=== PATIENT | male | born 1965 | race Asian ===

== ENCOUNTER 2023-01-23 10:49 | Inpatient (IN) | payer OTHER ==
[2023-01-23 11:57] LABS: HEMATOCRIT 46.1 % (35.4-49); HEMOGLOBIN 15.2 G/dL (11.7-16.9); MCH 29.9 pg (25.7-33.7); MEAN CELL VOLUME 90.5 fl (80-96); MEAN PLT VOLUME 8.7 fl (7.5-11.1); PLATELET COUNT 225.1 10^3/uL (134-434); RBC 5.09 10^6/uL (4.00-5.60); RDW 17.7 % (11.9-15.9); WHITE BLOOD COUNT 7.1 10^3/uL (4.0-10.8)
[2023-01-23 12:19] LABS: ALBUMIN 3.4 g/dl (3.4-5.0); BLOOD UREA NITROGEN 19.4 mg/dl (7-18); CALCIUM 8.6 mg/dl (8.5-10.1); CREATININE 0.9 mg/dl (0.6-1.3); POTASSIUM 4.1 mmol/L (3.5-5.1); SGOT/AST 59.5 U/L (15-37); SGPT/ALT 53.5 U/L (7-52)
[2023-01-23 12:35] LABS: INR 1.49 (0.83-1.09); PROTHROMBIN TIME (PATIENT) 17.2 SEC (9.7-13.0)
[2023-01-23 12:38] LABS: ACTIVATED PTT 29.7 SECONDS (25.2-36.5)
[2023-01-23] MEDS ORDERED: METOPROLOL TARTRATE 5 MG/5 ML VIAL IVPUSH ONE (12:38)
[2023-01-23] MEDS ORDERED: METOPROLOL TARTRATE 5 MG/5 ML VIAL ONE (13:03)
[2023-01-23 13:13] LABS: N-TERMINAL BNP 1338.5 pg/ml (5-125)
[2023-01-23 13:22] LABS: EPITHELIAL CELLS FEW /hpf
[2023-01-23 13:23] LABS: AMORP URATES 1+ /hpf (NONE SEEN); URINE HYALINE CAST 0-1 /lpf; URINE MUCUS 1+
[2023-01-23] MEDS ORDERED: DIGOXIN 0.5 MG/2 ML AMPUL IVPUSH ONE (14:28)
[2023-01-23] MEDS ORDERED: FUROSEMIDE 40 MG/4 ML INJECTABLE VIAL IVPUSH ONE (14:29)
[2023-01-23] MEDS ORDERED: FUROSEMIDE 40 MG/4 ML INJECTABLE VIAL ONE (14:52)
[2023-01-23] MEDS ORDERED: DIGOXIN 0.5 MG/2 ML AMPUL ONE (14:52)
[2023-01-23 17:26] VITALS: BMI 26.1
[2023-01-23] MEDS: ATORVASTATIN CA 40 MG TABLET (FP) PO SCH (21:33)
[2023-01-23] MEDS: APIXABAN 5 MG TABLET PO SCH (21:33)
[2023-01-24] MEDS ORDERED: METOPROLOL TARTRATE 5 MG/5 ML VIAL IVPUSH PRN (04:41)
[2023-01-24] MEDS: FUROSEMIDE 40 MG/4 ML INJECTABLE VIAL IVPUSH SCH ×2 (06:32→14:43)
[2023-01-24 09:02] LABS: ALBUMIN 3.2 g/dl (3.4-5.0); BILIRUBIN,TOTAL 2.5 mg/dl (0.2-1); BLOOD UREA NITROGEN 17.5 mg/dl (7-18); CALCIUM 8.5 mg/dl (8.5-10.1); CREATININE 0.9 mg/dl (0.6-1.3); POTASSIUM 4.4 mmol/L (3.5-5.1); SGOT/AST 53.5 U/L (15-37); SGPT/ALT 49.4 U/L (7-52); TOT PROT 5.8 g/dl (6.4-8.2)
[2023-01-24 09:19] LABS: HEMATOCRIT 43.8 % (35.4-49); HEMOGLOBIN 14.4 G/dL (11.7-16.9); MCHC 32.8 g/dl (32.0-35.9); MEAN CELL VOLUME 91.4 fl (80-96); MEAN PLT VOLUME 8.9 fl (7.5-11.1); PLATELET COUNT 228.5 10^3/uL (134-434); RBC 4.79 10^6/uL (4.00-5.60); RDW 18.9 % (11.9-15.9); WHITE BLOOD COUNT 7.1 10^3/uL (4.0-10.8)
[2023-01-24] MEDS: APIXABAN 5 MG TABLET PO SCH ×2 (10:12→21:02)
[2023-01-24 11:22] LABS: PLATELET ESTIMATE ADEQUATE
[2023-01-24] MEDS: VALSARTAN 80 MG TABLET PO SCH (16:38)
[2023-01-24] MEDS: ATORVASTATIN CA 40 MG TABLET (FP) PO SCH (21:02)
[2023-01-25] MEDS: FUROSEMIDE 40 MG/4 ML INJECTABLE VIAL IVPUSH SCH ×2 (06:36→14:35)
[2023-01-25] MEDS: VALSARTAN 80 MG TABLET PO SCH (10:51)
[2023-01-25] MEDS: APIXABAN 5 MG TABLET PO SCH ×2 (10:51→21:53)
[2023-01-25 12:10] LABS: ALBUMIN 3.1 g/dl (3.4-5.0); BILIRUBIN,TOTAL 1.8 mg/dl (0.2-1); BLOOD UREA NITROGEN 14.8 mg/dl (7-18); CALCIUM 8.4 mg/dl (8.5-10.1); CREATININE 0.9 mg/dl (0.6-1.3); HEMATOCRIT 47.4 % (35.4-49); HEMOGLOBIN 15.2 G/dL (11.7-16.9); MCH 29.2 pg (25.7-33.7); MEAN CELL VOLUME 91.1 fl (80-96); MEAN PLT VOLUME 8.5 fl (7.5-11.1); PLATELET COUNT 236.7 10^3/uL (134-434); POTASSIUM 4.2 mmol/L (3.5-5.1); RDW 18.4 % (11.9-15.9); TOT PROT 5.7 g/dl (6.4-8.2); WHITE BLOOD COUNT 6.9 10^3/uL (4.0-10.8)
[2023-01-25 12:50] LABS: PLATELET ESTIMATE ADEQUATE
[2023-01-25] MEDS: ATORVASTATIN CA 40 MG TABLET (FP) PO SCH (21:53)
[2023-01-25 23:05] VITALS: RESP 18
[2023-01-26 08:21] LABS: ALBUMIN 3.1 g/dl (3.4-5.0); BILIRUBIN,TOTAL 1.7 mg/dl (0.2-1); BLOOD UREA NITROGEN 14.7 mg/dl (7-18); CALCIUM 8.7 mg/dl (8.5-10.1); CREATININE 1.1 mg/dl (0.6-1.3); POTASSIUM 4.2 mmol/L (3.5-5.1); SGOT/AST 40.3 U/L (15-37); SGPT/ALT 41.5 U/L (7-52); TOT PROT 5.7 g/dl (6.4-8.2)
[2023-01-26 09:33] LABS: BASO % 0.7 % (0-2.0); EOS % 4.4 % (0-4.5); HEMATOCRIT 43.9 % (35.4-49); HEMOGLOBIN 14.2 GM/dL (11.7-16.9); LYMPH % 26.8 % (8-40); MCH 28.2 pg (25.7-33.7); MCHC 32.4 g/dl (32.0-35.9); MEAN CELL VOLUME 87.1 fl (80-96); MEAN PLT VOLUME 7.8 fl (7.5-11.1); MONO % 13.1 % (3.8-10.2); PLATELET COUNT 245 10^3/uL (134-434); RBC 5.04 M/mm3 (4.00-5.60); WHITE BLOOD COUNT 6.4 K/mm3 (4.0-10.0)
[2023-01-26] MEDS ORDERED: TORSEMIDE 20 MG TABLET (FP) PO SCH (10:00)
[2023-01-26] MEDS: APIXABAN 5 MG TABLET PO SCH (10:22)
[2023-01-26] MEDS: VALSARTAN 80 MG TABLET PO SCH (10:22)
[2023-01-26] MEDS ORDERED: metoPROLOL SUCCINATE 25 MG TAB.SR.24H (FP) PO ONE (11:00)
[2023-01-26 14:22] VITALS: BP 140/92; PULSE 90; TEMP 98.3
== END 2023-01-26 14:30 | disposition home or self-care (01) | DRG 201 ==
LOC: FER 10:49 → FM/S 13:26
PROVIDERS: ADMIT Student in an Organized Health Care Education/Training Program
DX: I48.19 Other persistent atrial fibrillation (principal); I11.0 Hypertensive heart disease with heart failure; I50.21 Acute systolic (congestive) heart failure; E78.5 Hyperlipidemia, unspecified; I08.1 Rheumatic disorders of both mitral and tricuspid valves
CPT/HCPCS: 36415; 71045-TC-FY; 76700-TC; 80053; 80061; 81003; 81015; 83735; 83880; 84443; 84484; 85025; 85610; 85730; 93005; 93306-TC; 93970-TC; 99285-25

== ENCOUNTER 2023-03-29 17:40 | Emergency (ER) | payer OTHER ==
[2023-03-29 18:12] VITALS: BP 145/93; PULSE 101; RESP 20; TEMP 98; BMI 30.2
[2023-03-31] MEDS ORDERED: REFRIGERATED ANITBIOTICS ONE (11:02)
== END 2023-03-29 18:01 | disposition home or self-care (01) ==
LOC: FER 17:40
DX: Z48.01 Encounter for change or removal of surgical wound dressing (principal); S80.812D Abrasion, left lower leg, subsequent encounter; V19.9XXD Pedal cyclist (driver) (passenger) injured in unspecified traffic accident, subsequent encounter
CPT/HCPCS: 99282-25

== ENCOUNTER 2023-04-16 10:15 | Emergency (ER) | payer OTHER ==
[2023-04-16 10:36] VITALS: BP 153/10; PULSE 53; RESP 18; TEMP 98.1; BMI 22.6
== END 2023-04-16 11:39 | disposition home or self-care (01) ==
LOC: FER 10:15
DX: Z48.00 Encounter for change or removal of nonsurgical wound dressing (principal)
CPT/HCPCS: 99281-25